=== PATIENT | male | born 1990 | race Caucasian/White ===

== ENCOUNTER 2020-11-13 19:53 | Emergency (ER) | payer OTHER ==
[2020-11-13 20:21] LABS: BILIRUBIN NEGATIVE (NEGATIVE); BLOOD NEGATIVE Ery/uL (NEGATIVE); CLARITY CLEAR (CLEAR); COLOR YELLOW (YELLOW); GLUCOSE (U) NORMAL (NORMAL); LEUKOCYTES NEGATIVE Leu/uL (NEGATIVE); NITRITE NEGATIVE (NEGATIVE); PROTEIN NEGATIVE (NEGATIVE)
[2020-11-13 20:40] LABS: BASOPHIL 0.2 % (0-2); EOSINOPHIL 1.8 % (0-5); HCT 49.6 % (42.0-52.0); HGB 15.8 g/dl (13.2-18.0); LYMPHOCYTE 45.1 % (15-48); MCH 29.4 pg (25.0-31.0); MCHC 31.9 g/dL (32.0-36.0); MCV 92.4 fL (78.0-100.0); MONOCYTE 8.3 % (0-12); MPV 11.3 fL (6.0-9.5); NEUTROPHIL 44.4 % (41-80); NRBC 0; PLT 129 K/uL (150-400); RBC 5.37 M/uL (4.70-6.00); RDW 14.7 % (11.5-14.0); WBC 5.1 K/uL (4.0-10.5)
[2020-11-13 20:48] LABS: INR 1.18 (0.9-1.2); PROTHROMBIN TIME 14.4 SECONDS (11.8-13.4); PTT 30.7 SECONDS (24.4-34.7)
[2020-11-13 21:03] LABS: ALBUMIN 3.3 g/dL (3.4-5.0); BILIRUBIN - TOTAL 0.7 mg/dL (0.2-1.0); BUN/CREAT RATIO (CALC) 12.2 RATIO; CREATININE 0.98 mg/dL (0.67-1.17); GLOBULIN (CALCULATION) 2.8 g/dL; POTASSIUM 5.4 mmol/L (3.5-5.1); TOTAL PROTEIN 6.1 g/dL (6.4-8.2)
[2020-11-13 21:16] LABS: AMPHETAMINES NEGATIVE (NEGATIVE); BARBITURATES NEGATIVE (NEGATIVE); ECSTASY (MDMA) NEGATIVE (NEGATIVE); MARIJUANA (THC) NEGATIVE (NEGATIVE); METHADONE NEGATIVE (NEGATIVE); OPIATES NEGATIVE (NEGATIVE); OXYCODONE NEGATIVE (NEGATIVE)
== END 2020-11-13 22:54 | disposition home or self-care (01) ==
LOC: FER 19:53
PROVIDERS: Family Medicine; Internal Medicine
DX: R07.89 Other chest pain (principal); I10 Essential (primary) hypertension; F17.210 Nicotine dependence, cigarettes, uncomplicated; Z88.5 Allergy status to narcotic agent; Z88.6 Allergy status to analgesic agent
CPT/HCPCS: 36415; 71045; 80053; 80305; 81003; 84484; 85025; 85610; 85730; 93005; J2405; J3490